=== PATIENT | male | born 1935 ===

== ENCOUNTER 2019-05-21 14:41 | Inpatient (IN) | payer MEDICARE ==
[~2019-05-21] VITALS: Ht 175.3 cm; Wt 71.9 kg
[2019-05-21 20:30] VITALS: BP 136/66
[2019-05-21] MEDS ORDERED: TIZA4TAB11 PO (21:55)
[2019-05-21] MEDS ORDERED: ACET-73 PO (21:55)
[2019-05-21] MEDS ORDERED: CLON1TAB12 PO (21:55)
[2019-05-21] MEDS ORDERED: SENN-18 PO (21:55)
[2019-05-21] MEDS ORDERED: METH-406 PO (21:55)
[2019-05-21] MEDS ORDERED: TRAM50TA PO (21:55)
[2019-05-21] MEDS ORDERED: BISA10SU61 RC (21:55)
[2019-05-21] MEDS ORDERED: OXYC15TA46 PO (21:55)
[2019-05-21] MEDS ORDERED: DOCU100C36 PO (21:55)
[2019-05-21] MEDS ORDERED: MAGN400O6 PO (21:55)
[2019-05-21] MEDS ORDERED: LIDO30AD10 TD (21:55)
[2019-05-22] MEDS ORDERED: ACETAMINOPHEN 325 MG TABLET PO PRN
[2019-05-22 05:01] VITALS: BP 134/67
[2019-05-22] MEDS ORDERED: OXYCODONE HCL 5 MG TABLET PO PRN (09:45)
[2019-05-22] MEDS ORDERED: TRAMADOL HCL 50 MG TABLET PO SCH ×3 (09:45→17:00)
[2019-05-22] MEDS ORDERED: OXYCODONE HCL 5 MG PO SCH (09:45)
[2019-05-22] MEDS ORDERED: BISACODYL 10 MG SUPP.RECT RC PRN (09:45)
[2019-05-22] MEDS ORDERED: MAGNESIUM HYDROXIDE 30 ML LIQUID UDC PO PRN (09:45)
[2019-05-22] MEDS ORDERED: TIZANIDINE HCL 4 MG TABLET PO PRN (09:45)
[2019-05-22] MEDS: DOCUSATE SODIUM 100 MG CAPSULE PO SCH ×2 (09:54→18:32)
[2019-05-22 10:22] VITALS: BP 146/70
[2019-05-22] MEDS: METHOCARBAMOL 750 MG TABLET PO SCH ×2 (11:23→14:27)
[2019-05-22] MEDS: TRAMADOL HCL 50 MG TABLET PO SCH ×3 (12:11→18:32)
[2019-05-22 19:21] VITALS: BP 147/73
[2019-05-22 20:20] VITALS: BP 142/77
[2019-05-22] MEDS: QUETIAPINE FUMARATE 25 MG TABLET PO SCH (20:28)
[2019-05-22] MEDS: SENNOSIDES 1 TABLET PO SCH (20:28)
[2019-05-22] MEDS ORDERED: CLONAZEPAM 1 MG TABLET PO SCH (21:00)
[2019-05-22] MEDS: METHOCARBAMOL 500 MG TABLET PO SCH (21:03)
[2019-05-23 04:22] VITALS: BP 137/80
[2019-05-23] MEDS: METHOCARBAMOL 500 MG TABLET PO SCH ×3 (06:04→21:00)
[2019-05-23] MEDS: TRAMADOL HCL 50 MG TABLET PO SCH ×5 (06:05→18:39)
[2019-05-23] MEDS: HYDROCORTISONE 0.5% CREAM 28.35 GM TUBE TOP PRN (06:16)
[2019-05-23] MEDS: LIDOCAINE 5% PATCH TD SCH (09:20)
[2019-05-23] MEDS: DOCUSATE SODIUM 100 MG CAPSULE PO SCH ×2 (09:20→16:05)
[2019-05-23 09:47] VITALS: BP 103/69
[2019-05-23] MEDS: IBUPROFEN 600 MG TABLET PO PRN ×2 (09:52→20:48)
[2019-05-23 15:59] VITALS: BP 118/69
[2019-05-23 19:36] VITALS: BP 120/58
[2019-05-23] MEDS: SENNOSIDES 1 TABLET PO SCH (20:45)
[2019-05-23] MEDS: QUETIAPINE FUMARATE 25 MG TABLET PO SCH (20:45)
[2019-05-24 04:00] VITALS: BP 147/60
[2019-05-24] MEDS: TRAMADOL HCL 50 MG TABLET PO SCH ×4 (06:19→18:16)
[2019-05-24] MEDS: METHOCARBAMOL 500 MG TABLET PO SCH ×3 (06:19→21:13)
[2019-05-24] MEDS: LIDOCAINE 5% PATCH TD SCH (09:00)
[2019-05-24] MEDS: IBUPROFEN 600 MG TABLET PO PRN (09:29)
[2019-05-24] MEDS: DOCUSATE SODIUM 100 MG CAPSULE PO SCH ×2 (09:31→18:16)
[2019-05-24 12:00] VITALS: BP 132/74
[2019-05-24] MEDS: HYDROCORTISONE 0.5% CREAM 28.35 GM TUBE TOP PRN (16:28)
[2019-05-24 19:44] VITALS: BP 127/71
[2019-05-24] MEDS: CLONAZEPAM 1 MG TABLET PO SCH (20:16)
[2019-05-24] MEDS: QUETIAPINE FUMARATE 25 MG TABLET PO SCH (20:16)
[2019-05-24] MEDS: SENNOSIDES 1 TABLET PO SCH (20:16)
[2019-05-25 05:53] VITALS: BP 121/66
[2019-05-25] MEDS: METHOCARBAMOL 500 MG TABLET PO SCH ×3 (06:07→21:08)
[2019-05-25] MEDS: TRAMADOL HCL 50 MG TABLET PO SCH ×4 (06:37→18:12)
[2019-05-25] MEDS: DOCUSATE SODIUM 100 MG CAPSULE PO SCH ×2 (09:17→17:00)
[2019-05-25] MEDS: LIDOCAINE 5% PATCH TD SCH (09:17)
[2019-05-25] MEDS ORDERED: IBUPROFEN 400 MG TABLET PO PRN (18:30)
[2019-05-25 20:34] VITALS: BP 155/67
[2019-05-25] MEDS ORDERED: HYDROCORTISONE 0.5% CREAM 28.35 GM TUBE TOP SCH (21:00)
[2019-05-25] MEDS: CLONAZEPAM 1 MG TABLET PO SCH (21:07)
[2019-05-25] MEDS: SENNOSIDES 1 TABLET PO SCH (21:07)
[2019-05-25] MEDS: QUETIAPINE FUMARATE 25 MG TABLET PO SCH (21:08)
[2019-05-25] MEDS ORDERED: HYDROCORTISONE 1% CREAM 30 GM TUBE TP ONE (22:00)
[2019-05-26 05:29] VITALS: BP 136/49
[2019-05-26] MEDS: METHOCARBAMOL 500 MG TABLET PO SCH ×3 (06:03→21:29)
[2019-05-26] MEDS: TRAMADOL HCL 50 MG TABLET PO SCH ×4 (06:04→18:24)
[2019-05-26 07:11] LABS: BASOPHILS # (AUTO) 0.1 K/uL (0.0-8.0); BASOPHILS % (AUTO) 1.3 % (0.0-2.0); EOSINOPHILS # (AUTO) 0.1 K/uL (0.0-0.7); EOSINOPHILS % (AUTO) 3.2 % (0.0-7.0); HEMATOCRIT 45.2 % (36.7-47.1); HEMOGLOBIN 14.7 g/dL (12.5-16.3); LYMPHOCYTES % (AUTO) 21.5 % (20.5-51.5); MEAN CORPUSCULAR HEMOGLOBIN 29.3 uug (23.8-33.4); MEAN CORPUSCULAR HGB CONC 33 g/dL (32.5-36.3); MEAN CORPUSCULAR VOLUME 90.2 fL (73.0-96.2); MONOCYTES # (AUTO) 0.7 K/uL (2.0-10.0); MONOCYTES % (AUTO) 14.6 % (0.0-11.0); NEUTROPHILS # (AUTO) 2.7 K/uL (1.8-8.9); NEUTROPHILS % (AUTO) 59.4 % (38.5-71.5); PLATELET COUNT (AUTO) 258 K/uL (152-348); RED BLOOD CELL COUNT(AUTO) 5.01 MIL/uL (4.06-5.63); WHITE BLOOD COUNT (AUTO) 4.5 K/uL (3.6-10.2)
[2019-05-26 07:20] LABS: CREATININE 1.2 mg/dL (0.6-1.3); POTASSIUM 4.2 mmol/L (3.5-5.1)
[2019-05-26 08:15] VITALS: BP 126/61
[2019-05-26] MEDS: LIDOCAINE 5% PATCH TD SCH ×2 (08:35→08:37)
[2019-05-26] MEDS: DOCUSATE SODIUM 100 MG CAPSULE PO SCH ×2 (08:35→16:21)
[2019-05-26 16:31] VITALS: BP 151/58
[2019-05-26 19:51] VITALS: BP 147/52
[2019-05-26] MEDS: SENNOSIDES 1 TABLET PO SCH (20:17)
[2019-05-26] MEDS: CLONAZEPAM 1 MG TABLET PO SCH (20:17)
[2019-05-26] MEDS: QUETIAPINE FUMARATE 25 MG TABLET PO SCH (20:19)
[2019-05-27 04:35] VITALS: BP 114/45
[2019-05-27] MEDS: METHOCARBAMOL 500 MG TABLET PO SCH ×3 (06:14→22:28)
[2019-05-27] MEDS: TRAMADOL HCL 50 MG TABLET PO SCH ×4 (06:15→18:48)
[2019-05-27] MEDS: DOCUSATE SODIUM 100 MG CAPSULE PO SCH ×2 (08:47→17:43)
[2019-05-27] MEDS: IBUPROFEN 400 MG TABLET PO PRN ×2 (08:47→20:29)
[2019-05-27 16:11] VITALS: BP 131/62
[2019-05-27] MEDS: QUETIAPINE FUMARATE 25 MG TABLET PO SCH (20:29)
[2019-05-27] MEDS: SENNOSIDES 1 TABLET PO SCH (20:29)
[2019-05-27] MEDS: CLONAZEPAM 1 MG TABLET PO SCH (20:29)
[2019-05-27 20:43] VITALS: BP 106/61
[2019-05-28] MEDS: METHOCARBAMOL 500 MG TABLET PO SCH (05:37)
[2019-05-28 05:52] VITALS: BP 121/65
[2019-05-28] MEDS: TRAMADOL HCL 50 MG TABLET PO SCH ×2 (06:13→11:12)
[2019-05-28 07:50] VITALS: BP 126/56
[2019-05-28] MEDS: DOCUSATE SODIUM 100 MG CAPSULE PO SCH (08:46)
[2019-05-28] MEDS: IBUPROFEN 400 MG TABLET PO PRN (08:46)
[2019-05-28 11:58] VITALS: BP 142/77
== END 2019-05-28 13:00 | disposition home health service (06) | DRG 559 ==
PROVIDERS: ADMIT Physical Medicine & Rehabilitation Pain Medicine; ATTEND Physical Medicine & Rehabilitation Pain Medicine
DX: Z47.89 Encounter for other orthopedic aftercare (principal); G92 Toxic encephalopathy; G25.0 Essential tremor; G31.84 Mild cognitive impairment of uncertain or unknown etiology; M51.16 Intervertebral disc disorders with radiculopathy, lumbar region; M48.061 Spinal stenosis, lumbar region without neurogenic claudication; I27.20 Pulmonary hypertension, unspecified; R32 Unspecified urinary incontinence; Z85.46 Personal history of malignant neoplasm of prostate; I10 Essential (primary) hypertension; R26.2 Difficulty in walking, not elsewhere classified; R53.1 Weakness; Z90.79 Acquired absence of other genital organ(s)
CPT/HCPCS: 36415; 85025